=== PATIENT | male | born 1930 | race African-American/Black ===

== ENCOUNTER 2017-05-04 22:05 | Inpatient (IN) | payer OTHER, MEDICAID, MEDICARE ==
[~2017-05-04] VITALS: Ht 165.1 cm; Wt 28.1 kg
[2017-05-04] MEDS ORDERED: SODIUM CHLORIDE 0.9% 500 ML IV ONE (23:04)
[2017-05-04 23:30] LABS: HEMATOCRIT. 30.6 % (42.0-52.0); MEAN CORPUSCULAR HEMOGLOBIN 27.3 pg (28.0-32.0); MEAN CORPUSCULAR VOLUME 83.7 fL (80.0-94.0); MEAN PLATELET VOLUME 7.7 fl (7.4-10.4); PLATELET 264 x1000/uL (130-400); RED BLOOD CELL COUNT 3.65 mill/uL (4.7-6.1); RED CELL DISTRIBUTION WIDTH 19.8 % (11.6-14.6)
[2017-05-04 23:37] LABS: PROTHROMBIN TIME 10.9 sec (9.4-11.6)
[2017-05-04 23:54] LABS: CARBON DIOXIDE 24 mEq/L (21-32); CHLORIDE 109 mEq/L (98-107)
[2017-05-05] VITALS (10 sets, daily range): BP systolic 124–156; BP diastolic 62–82
[2017-05-05 00:14] LABS: BG BASE EXCESS 1.4 mmol/L (-2.0-2.0); BG CARBOXYHEMOGLOBIN 1.1 % (0.5-1.5); BG DEOXYHEMOGLOBIN 11.5 % (0.0-5.0); BG FRACTION INSPIRED OXYGEN 21; BG HCO3 ACT 25.9 mmol/L (22.0-26.0); BG METHEMOGLOBIN 0.3 % (0.0-1.5); BG OXYGEN SATURATION 88.3 % (92.0-98.5); BG OXYHEMOGLOBIN 87.1 % (94.0-97.0); BG PCO2 40.6 mmHg (35.0-45.0); BG PH 7.423 (7.350-7.450); BG PO2 54.1 mmHg (75.0-100.0); BG SAMPLE SITE RIGHT BRACHIAL; BG TOTAL HEMOGLOBIN 11.6 g/dL (12.0-18.0); BG VENT MODE ROOM AIR
[2017-05-05 00:36] LABS: ATYPICAL LYMPHOCYTES 1
[2017-05-05 00:37] LABS: PLATELET ESTIMATE NORMAL
[2017-05-05] MEDS ORDERED: DEXAMETHASONE 10 MG/ML VIAL IV ONE (00:45)
[2017-05-05] MEDS ORDERED: ACETAMINOPHEN 325MG TABLET PO PRN (01:45)
[2017-05-05] MEDS ORDERED: CLONIDINE 0.1MG TABLET PO PRN (01:45)
[2017-05-05 01:48] LABS: CLARITY URINE CLEAR (CLEAR); COLOR URINE YELLOW (YELLOW); GLUCOSE URINE NEGATIVE (NEGATIVE); KETONES URINE NEGATIVE (NEGATIVE); LEUKOCYTE ESTERASE URINE NEGATIVE (NEGATIVE); NITRITE URINE NEGATIVE (NEGATIVE); OCCULT BLOOD URINE 1+ (NEGATIVE); PROTEIN URINE 2+ (NEGATIVE); SPECIFIC GRAVITY URINE 1.019 (1.005-1.030)
[2017-05-05] MEDS: SODIUM CHLORIDE 0.9% INJ 3ML FLUSH IVF SCH ×3 (06:34→23:03)
[2017-05-05] MEDS: LEVETIRACETAM 500 MG in SODIUM CHLORIDE 0.9% 100 ML IV SCH ×2 (07:49→18:51)
[2017-05-05] MEDS: DEXAMETHASONE 4MG TABLET PO SCH ×4 (07:49→23:52)
[2017-05-05] MEDS ORDERED: IOHEXOL-350 100 ML BOTTLE ONE (12:16)
[2017-05-05] MEDS ORDERED: SODIUM CHLORIDE 0.9% 10ML VIAL ONE (12:16)
[2017-05-05] MEDS: BLOOD SUGAR DIAGNOSTIC STRIP TEST SCH ×2 (16:28→21:23)
[2017-05-05] MEDS: INSULIN LISPRO 100 UNITS/ML SUBCUT SCH ×2 (16:47→21:00)
[2017-05-05] MEDS: FAMOTIDINE 20MG TABLET PO SCH (17:40)
[2017-05-05] MEDS: INSULIN DETEMIR UD 100 UNITS/ML SYR SUBCUT SCH (21:24)
[2017-05-06] VITALS (12 sets, daily range): BP systolic 123–157; BP diastolic 60–91
[2017-05-06] MEDS: LEVETIRACETAM 500 MG in SODIUM CHLORIDE 0.9% 100 ML IV SCH (06:23)
[2017-05-06] MEDS: SODIUM CHLORIDE 0.9% INJ 3ML FLUSH IVF SCH ×3 (06:23→21:33)
[2017-05-06] MEDS: DEXAMETHASONE 4MG TABLET PO SCH ×2 (06:23→12:04)
[2017-05-06] MEDS: DEXTROSE 50% WATER 50ML SYRINGE IV PRN (06:44)
[2017-05-06] MEDS: BLOOD SUGAR DIAGNOSTIC STRIP TEST SCH ×4 (06:48→21:06)
[2017-05-06] MEDS: INSULIN LISPRO 100 UNITS/ML SUBCUT SCH ×4 (07:20→21:00)
[2017-05-06] MEDS: FAMOTIDINE 20MG TABLET PO SCH (08:31)
[2017-05-06] MEDS ORDERED: LORAZEPAM 2MG/ML CPJ IV PRN (17:15)
[2017-05-06] MEDS ORDERED: DEXAMETHASONE 4MG TABLET PO SCH (21:00)
[2017-05-06] MEDS: LEVETIRACETAM 500MG TABLET PO SCH (21:07)
[2017-05-06] MEDS: INSULIN DETEMIR UD 100 UNITS/ML SYR SUBCUT SCH (21:31)
[2017-05-07] VITALS (23 sets, daily range): BP systolic 120–152; BP diastolic 69–88
[2017-05-07] MEDS: SODIUM CHLORIDE 0.9% INJ 3ML FLUSH IVF SCH ×3 (06:16→22:00)
[2017-05-07] MEDS: BLOOD SUGAR DIAGNOSTIC STRIP TEST SCH ×4 (06:17→21:15)
[2017-05-07] MEDS: INSULIN LISPRO 100 UNITS/ML SUBCUT SCH ×4 (07:20→21:00)
[2017-05-07] MEDS: FAMOTIDINE 20MG TABLET PO SCH (10:43)
[2017-05-07] MEDS: LEVETIRACETAM 500MG TABLET PO SCH ×2 (10:43→21:15)
[2017-05-08] VITALS (14 sets, daily range): BP systolic 120–166; BP diastolic 70–90
[2017-05-08] MEDS: SODIUM CHLORIDE 0.9% INJ 3ML FLUSH IVF SCH ×3 (06:00→21:07)
[2017-05-08] MEDS: BLOOD SUGAR DIAGNOSTIC STRIP TEST SCH ×4 (06:10→20:40)
[2017-05-08] MEDS: INSULIN LISPRO 100 UNITS/ML SUBCUT SCH ×4 (07:05→20:40)
[2017-05-08] MEDS: LEVETIRACETAM 500MG TABLET PO SCH ×2 (09:17→20:32)
[2017-05-08] MEDS: FAMOTIDINE 20MG TABLET PO SCH (09:17)
[2017-05-08] MEDS: DEXT 5%/0.45% NACL 1000ML 1,000 ML IV SCH (20:32)
[2017-05-08] MEDS: INSULIN DETEMIR UD 100 UNITS/ML SYR SUBCUT SCH (21:07)
[2017-05-09] VITALS (10 sets, daily range): BP systolic 112–155; BP diastolic 78–90
[2017-05-09 06:44] LABS: BASOPHILS % 0.2 % (0.0-2.0); EOSINOPHILS % 0.3 % (0.0-5.0); HEMATOCRIT. 34.9 % (42.0-52.0); HEMOGLOBIN. 11.3 g/dL (14.0-18.0); LYMPHOCYTES % 13.9 % (20.0-50.0); MEAN CORPUSCULAR HEMOGLOBIN 27.3 pg (28.0-32.0); MEAN CORPUSCULAR VOLUME 84.1 fL (80.0-94.0); MEAN PLATELET VOLUME 7.7 fl (7.4-10.4); MONOCYTES % 13.1 % (2.0-8.0); NEUTROPHILS % 72.5 % (40.0-76.0); PLATELET 225 x1000/uL (130-400); RED BLOOD CELL COUNT 4.15 mill/uL (4.7-6.1); RED CELL DISTRIBUTION WIDTH 19.5 % (11.6-14.6)
[2017-05-09] MEDS: SODIUM CHLORIDE 0.9% INJ 3ML FLUSH IVF SCH ×3 (06:57→23:02)
[2017-05-09] MEDS: BLOOD SUGAR DIAGNOSTIC STRIP TEST SCH ×4 (06:57→22:46)
[2017-05-09 07:11] LABS: CARBON DIOXIDE 28 mEq/L (21-32); CHLORIDE 103 mEq/L (98-107)
[2017-05-09] MEDS: INSULIN LISPRO 100 UNITS/ML SUBCUT SCH ×4 (07:20→21:00)
[2017-05-09] MEDS: LEVETIRACETAM 500MG TABLET PO SCH ×2 (08:25→22:38)
[2017-05-09] MEDS: FAMOTIDINE 20MG TABLET PO SCH (08:25)
[2017-05-09] MEDS: DEXT 5%/0.45% NACL 1000ML 1,000 ML IV SCH (08:26)
[2017-05-09] MEDS: INSULIN DETEMIR UD 100 UNITS/ML SYR SUBCUT SCH ×2 (10:42→22:53)
[2017-05-10] VITALS: BP 119/69
[2017-05-10 04:00] VITALS: BP 130/72
[2017-05-10] MEDS: SODIUM CHLORIDE 0.9% INJ 3ML FLUSH IVF SCH ×3 (06:44→22:20)
[2017-05-10] MEDS: BLOOD SUGAR DIAGNOSTIC STRIP TEST SCH ×4 (06:46→22:18)
[2017-05-10] MEDS: INSULIN LISPRO 100 UNITS/ML SUBCUT SCH ×4 (07:35→21:00)
[2017-05-10 08:00] VITALS: BP 151/84
[2017-05-10] MEDS: BUDESONIDE 0.5MG/2ML NEB HHN SCH ×2 (08:58→20:35)
[2017-05-10] MEDS: IPRATROPIUM/ALBUTEROL 0.5-3(2.5)MG/3ML NEB HHN PRN (08:58)
[2017-05-10] MEDS: FAMOTIDINE 20MG TABLET PO SCH (09:26)
[2017-05-10] MEDS: LEVETIRACETAM 500MG TABLET PO SCH ×2 (09:26→22:20)
[2017-05-10] MEDS: INSULIN DETEMIR UD 100 UNITS/ML SYR SUBCUT SCH ×2 (09:31→23:42)
[2017-05-10 12:00] VITALS: BP 141/88
[2017-05-10 16:00] VITALS: BP 138/87
[2017-05-10] MEDS: DEXTROSE 50% WATER 50ML SYRINGE IV PRN (17:37)
[2017-05-10 20:00] VITALS: BP 141/74
[2017-05-11] VITALS: BP 148/88
[2017-05-11] MEDS: IPRATROPIUM/ALBUTEROL 0.5-3(2.5)MG/3ML NEB HHN PRN ×3 (03:35→19:55)
[2017-05-11 04:00] VITALS: BP 142/85
[2017-05-11] MEDS: SODIUM CHLORIDE 0.9% INJ 3ML FLUSH IVF SCH ×2 (07:27→15:25)
[2017-05-11] MEDS: BLOOD SUGAR DIAGNOSTIC STRIP TEST SCH ×4 (07:42→22:30)
[2017-05-11] MEDS: INSULIN LISPRO 100 UNITS/ML SUBCUT SCH ×4 (07:50→21:00)
[2017-05-11 08:00] VITALS: BP 123/85
[2017-05-11] MEDS: LEVETIRACETAM 500MG TABLET PO SCH (08:22)
[2017-05-11] MEDS: FAMOTIDINE 20MG TABLET PO SCH (08:22)
[2017-05-11] MEDS: BUDESONIDE 0.5MG/2ML NEB HHN SCH ×2 (09:53→19:54)
[2017-05-11] MEDS: INSULIN DETEMIR UD 100 UNITS/ML SYR SUBCUT SCH ×2 (10:52→22:30)
[2017-05-11 12:00] VITALS: BP 141/82
[2017-05-11 16:00] VITALS: BP 138/82
[2017-05-11 20:00] VITALS: BP 154/86
[2017-05-12] VITALS: BP 144/89
[2017-05-12] MEDS: LEVETIRACETAM 500MG TABLET PO SCH ×3 (00:59→21:15)
[2017-05-12 04:00] VITALS: BP 134/84
[2017-05-12] MEDS: BLOOD SUGAR DIAGNOSTIC STRIP TEST SCH ×4 (07:27→21:18)
[2017-05-12] MEDS: INSULIN LISPRO 100 UNITS/ML SUBCUT SCH ×3 (07:50→21:17)
[2017-05-12 08:00] VITALS: BP 129/86
[2017-05-12] MEDS: FAMOTIDINE 20MG TABLET PO SCH (08:22)
[2017-05-12] MEDS: IPRATROPIUM/ALBUTEROL 0.5-3(2.5)MG/3ML NEB HHN PRN (08:27)
[2017-05-12] MEDS: BUDESONIDE 0.5MG/2ML NEB HHN SCH (08:27)
[2017-05-12] MEDS: INSULIN DETEMIR UD 100 UNITS/ML SYR SUBCUT SCH ×2 (11:34→21:18)
[2017-05-12 12:00] VITALS: BP 142/84
[2017-05-12] MEDS: SODIUM CHLORIDE 0.9% INJ 3ML FLUSH IVF SCH ×2 (15:26→21:28)
[2017-05-12 17:10] VITALS: BP 127/87
[2017-05-12 20:00] VITALS: BP 138/89
[2017-05-13] VITALS: BP 113/85
[2017-05-13] MEDS: INSULIN LISPRO 100 UNITS/ML SUBCUT SCH ×5 (02:48→21:00)
[2017-05-13 04:00] VITALS: BP 136/82
[2017-05-13] MEDS: SODIUM CHLORIDE 0.9% INJ 3ML FLUSH IVF SCH ×2 (05:34→16:57)
[2017-05-13] MEDS: BLOOD SUGAR DIAGNOSTIC STRIP TEST SCH ×4 (07:04→21:36)
[2017-05-13 08:00] VITALS: BP 142/85
[2017-05-13] MEDS: LEVETIRACETAM 500MG TABLET PO SCH ×2 (08:29→22:03)
[2017-05-13] MEDS: FAMOTIDINE 20MG TABLET PO SCH (08:29)
[2017-05-13] MEDS: IPRATROPIUM/ALBUTEROL 0.5-3(2.5)MG/3ML NEB HHN PRN ×2 (08:40→16:55)
[2017-05-13 10:29] LABS: HEMATOCRIT. 37.3 % (42.0-52.0); HEMOGLOBIN. 12.2 g/dL (14.0-18.0); MEAN CORPUSCULAR HEMOGLOBIN 27.5 pg (28.0-32.0); MEAN CORPUSCULAR VOLUME 84.1 fL (80.0-94.0); MEAN PLATELET VOLUME 8.3 fl (7.4-10.4); PLATELET 320 x1000/uL (130-400); RED BLOOD CELL COUNT 4.43 mill/uL (4.7-6.1)
[2017-05-13 10:54] LABS: CARBON DIOXIDE 29 mEq/L (21-32); CHLORIDE 101 mEq/L (98-107)
[2017-05-13] MEDS: INSULIN DETEMIR UD 100 UNITS/ML SYR SUBCUT SCH ×2 (11:25→21:44)
[2017-05-13 12:00] VITALS: BP 112/68
[2017-05-13 16:00] VITALS: BP 118/76
[2017-05-13 20:00] VITALS: BP 128/81
[2017-05-13] MEDS: DEXTROSE 50% WATER 50ML SYRINGE IV PRN (21:31)
[2017-05-13] MEDS: DIPHENHYDRAMINE 50MG/ML VIAL IV PRN (22:55)
[2017-05-14] VITALS: BP 151/85
[2017-05-14] MEDS ORDERED: DEXT 5%/0.45% NACL KCL 10MEQ/L 1,000 ML IV SCH
[2017-05-14 04:00] VITALS: BP 135/65
[2017-05-14] MEDS: SODIUM CHLORIDE 0.9% INJ 3ML FLUSH IVF SCH ×2 (06:14→14:03)
[2017-05-14] MEDS: DEXTROSE 50% WATER 50ML SYRINGE IV PRN (06:19)
[2017-05-14] MEDS: BLOOD SUGAR DIAGNOSTIC STRIP TEST SCH ×4 (06:24→20:13)
[2017-05-14] MEDS: INSULIN LISPRO 100 UNITS/ML SUBCUT SCH ×4 (07:50→21:00)
[2017-05-14 08:00] VITALS: BP 142/84
[2017-05-14] MEDS: LEVETIRACETAM 500MG TABLET PO SCH ×2 (08:37→21:00)
[2017-05-14] MEDS: FAMOTIDINE 20MG TABLET PO SCH (08:37)
[2017-05-14 12:00] VITALS: BP 104/69
[2017-05-14 16:00] VITALS: BP 130/78
[2017-05-14 17:05] LABS: PLATELET ESTIMATE NORMAL
[2017-05-14 20:00] VITALS: BP 118/67
[2017-05-15] VITALS: BP 123/88
[2017-05-15 04:00] VITALS: BP 145/86
[2017-05-15] MEDS: BLOOD SUGAR DIAGNOSTIC STRIP TEST SCH ×2 (07:20→12:00)
[2017-05-15 08:00] VITALS: BP 146/85
[2017-05-15] MEDS: LEVETIRACETAM 500MG TABLET PO SCH ×2 (09:59→11:15)
[2017-05-15] MEDS: FAMOTIDINE 20MG TABLET PO SCH ×2 (09:59→11:15)
[2017-05-15] MEDS: DIPHENHYDRAMINE 50MG/ML VIAL IV PRN (11:20)
[2017-05-15 12:00] VITALS: BP 153/91
[2017-05-15] MEDS ORDERED: ONDANSETRON HCL 4MG/2ML VIAL IV PRN (12:00)
[2017-05-15] MEDS: INSULIN LISPRO 100 UNITS/ML SUBCUT SCH (12:00)
[2017-05-15 16:00] VITALS: BP 155/78
[2017-05-15 17:16] VITALS: BP 155/78
== END 2017-05-15 17:50 | disposition hospice, inpatient (51) | DRG 180 ==
LOC: ER 22:19 → 3WST 05-05 01:02 → EDBEDREQ 05-05 01:07 → 3WST 05-05 20:29 → 6EST 05-09 15:30
PROVIDERS: ADMIT Internal Medicine; ATTEND Internal Medicine
PROC: 0GBG3ZX Excision of Left Thyroid Gland Lobe, Percutaneous Approach, Diagnostic (ICD-10-PCS; principal; 2017-05-07)
DX: C34.90 Malignant neoplasm of unspecified part of unspecified bronchus or lung (principal); G93.6 Cerebral edema; I61.8 Other nontraumatic intracerebral hemorrhage; J96.00 Acute respiratory failure, unspecified whether with hypoxia or hypercapnia; E43 Unspecified severe protein-calorie malnutrition; C79.31 Secondary malignant neoplasm of brain; E11.649 Type 2 diabetes mellitus with hypoglycemia without coma; G93.89 Other specified disorders of brain; J90 Pleural effusion, not elsewhere classified; Z68.1 Body mass index [BMI] 19.9 or less, adult; J44.9 Chronic obstructive pulmonary disease, unspecified; F17.200 Nicotine dependence, unspecified, uncomplicated; I10 Essential (primary) hypertension; K82.8 Other specified diseases of gallbladder; R29.6 Repeated falls; W19.XXXA Unspecified fall, initial encounter; Z51.5 Encounter for palliative care; Z66 Do not resuscitate; Z85.038 Personal history of other malignant neoplasm of large intestine; Z90.49 Acquired absence of other specified parts of digestive tract; Z80.9 Family history of malignant neoplasm, unspecified
CPT/HCPCS: 10022; 36415; 36600; 70450; 71010; 71275; 76942; 80048; 80053; 81001; 82375; 82805; 82962; 83735; 83880; 84484; 85025; 85610; 88172; 88173; 92610; 93005; 94640; 94664; 96361; 96374; 97116; 97162; 97530; 99291; A4216; J1100; J1200; J1815; J1953; J2060; J2405; J3490; J7030; J7050; J7620; J7626; J8540; Q9967